=== PATIENT | male | born 1985 | race Two or more races ===

== ENCOUNTER 2021-04-30 13:57 | Emergency (ER) | payer MEDICAID, SELFPAY ==
[2021-04-30 15:48] VITALS: BP 136/67; PULSE 68; RESP 16; TEMP 37.2; O2SAT 99; BMI 36.4
--- NOTE | 2021-04-30 16:08 | ED.BACK ---
HPI - Back Pain/Injury General Chief Complaint: Back Pain/Injury Stated Complaint: sciatica Time Seen by Provider: 04/30/21 16:08 Source: patient Mode of arrival: ambulatory Limitations: no limitations History of Present Illness HPI Narrative: patient with 7-8 weeks of sciatica, Patient has not had sciatica like this. Patient has received epidural for herniated disk. Patient with prior MRI for radiculopathy. patient states that his foot is numb MD elicited complaint: back pain Pertinent past history: prior back pain Onset (ago): week(s) Timing: constant Severity: moderate Location: lumbar spine Associated symptoms: weakness Related Data Previous Rx's Medication Instructions Recorded cyclobenzaprine 10 mg tablet 10 mg PO TID #10 tab 04/30/21 gabapentin 100 mg capsule 100 mg PO TID #20 cap 04/30/21 naproxen 500 mg tablet (Naprosyn) 500 mg PO BID #20 tab 04/30/21 Allergies Allergy/AdvReac Type Severity Reaction Status Date / Time No Known Allergies Allergy Verified 04/30/21 15:47 Review of Systems Constitutional: Constitutional: Reports no additional constitutional complaints Eyes: Eyes: Reports no additional eye complaints ENT: Denies dizziness Cardiovascular: Cardiovascular: Reports no additional cardiovascular complaints Respiratory: Respiratory: Reports as per HPI Gastrointestinal: Gastrointestinal: Reports no additional gastrointestinal complaints Musculoskeletal: Musculoskeletal: Reports no additional musculoskeletal complaints Integumentary/Breasts: Skin/Breast: Denies rash Neurologic: Reports system reviewed and no additional complaints, except as documented, Denies dizziness and Denies Sensory deficit (Neuro) Psychiatric: Psychiatric: Denies anxiety [facility] Social History Social History Advance Directives: No Advance Directives Information Provided: No Physical Exam Vital Signs: Vital Signs: Last Vital Signs Temp 98.9 F 04/30/21 15:48 Pulse 68 04/30/21 15:48 Resp 16 04/30/21 15:48 BP 136/67 04/30/21 15:48 Pulse Ox 99 04/30/21 15:48 Body Mass Index 36.4 Const: General: healthy appearing Nutritional Appearance: average body habitus Orientation/consciousness: oriented to person and patient oriented x3 Limitations: no limitations HENMT: Head: Yes normal to inspection Ears: external ears normal General nose exam: Normal external nose present Mouth: Normal oral and palatal mucosa present and oropharynx normal Throat: Yes posterior oropharynx normal Eyes: General: appearance normal, both eyes and all related structures Neck: Other: supple Neck: Yes normal visual inspection Chest: Chest palpation & inspection: normal inspection of the chest Resp: Auscultation: clear to auscultation bilaterally Cardio: Jugular venous distension: no JVD Rate: regular rate Rhythm: regular rhythm Heart sounds: S1 normal heart sound present and S2 normal heart sound present GI: Inspection: Yes normal to inspection Palpation (GI): Soft to palpation, nontender and No hepatosplenomegaly present Auscultation: normal bowel sounds Back/Spine/Pelvis: Other: left sciatica pain, no foot drop, no loss of strength Skin: General skin exam: no rashes or lesions noted Neuro: General: oriented to person and patient oriented x3 Cranial nerves: Yes CN's II-XII intact bilaterally Motor exam (neuro): 5/5 motor strength present throughout Sensory Exam: No Sensory deficit (Neuro) Extrem: General: Yes normal to inspection Psych: Appearance: grossly normal Course Reevaluation(s) Reevaluation #1: patient with classic sciatica, no neurologic loss, will start NSAIDs, flexeril, gabapentin Time: 16:17 Discharge Plan Discharge Clinical Impression: Lumbar radiculopathy Sciatica Qualifiers: Laterality: left Qualified Code(s): M54.32 - Sciatica, left side Patient Disposition: Home, Self-Care Instructions: Sciatica (ED), Acute Low Back Pain (ED), Lumbar Radiculopathy (ED) Prescriptions: New cyclobenzaprine 10 mg tablet 10 mg PO TID Qty: 10 RF: 0 naproxen [Naprosyn] 500 mg tablet 500 mg PO BID Qty: 20 RF: 0 gabapentin 100 mg capsule 100 mg PO TID Qty: 20 RF: 0
--- NOTE | 2021-04-30 16:29 | PC.NURSE ---
PT AWAKE, ALERT AND ORIENTED X 3. SKIN WARM AND DRY. RESP UNLABORED. DENIES N/V. NEUROS INTACT. SANTOS FREELY. EVALUATED BY DR LOPEZ. PLAN IS FOR DC HOME WITH SCRIPTS. PT AGREEABLE TO PLAN
== END 2021-04-30 16:32 | disposition home or self-care (01) ==
PROVIDERS: Emergency Provider Emergency Medicine
DX: M54.16 Radiculopathy, lumbar region (principal)
CPT/HCPCS: 99283

== ENCOUNTER 2021-05-14 15:58 | Emergency (ER) | payer OTHER, SELFPAY ==
[2021-05-14 16:49] VITALS: BP 153/100; PULSE 88; RESP 18; TEMP 35.9; O2SAT 98; BMI 33.4
--- NOTE | 2021-05-14 16:52 | ED_ITS ---
HPI - Back Pain/Injury General Chief Complaint: Back Pain/Injury Stated Complaint: back and leg pain Time Seen by Provider: 05/14/21 16:51 Source: patient Mode of arrival: ambulatory History of Present Illness HPI Narrative: 35-year-old male with a past medical history of spinal stenosis presenting to the ED complaining of acute on chronic low back pain radiating down left lower extremity with associated left lower extremity numbness x9 weeks. Admits was seen and treated in the ED for similar symptoms recently, been taking prescribed medications with little relief however ran out of medications. Denies known injury/trauma or fall, weakness, urinary incontinence/retention, fever, chills MD elicited complaint: back pain Related Data Previous Rx's Medication Instructions Recorded cyclobenzaprine 10 mg tablet 10 mg PO TID #10 tab 04/30/21 gabapentin 100 mg capsule 100 mg PO TID #20 cap 04/30/21 naproxen 500 mg tablet (Naprosyn) 500 mg PO BID #20 tab 04/30/21 cyclobenzaprine 5 mg tablet 5 mg PO Q8H PRN 5 Days #14 tab 05/14/21 gabapentin 100 mg capsule 100 mg PO TID #20 cap 05/14/21 lidocaine 5 % topical patch 1 patch TOPICAL DAILY PRN #30 ea 05/14/21 (Lidoderm) MDD remove after 12 hours naproxen 500 mg tablet 500 mg PO BID PRN 10 Days #20 tab 05/14/21 prednisone 20 mg tablet 40 mg PO DAILY 5 Days #10 tab 05/14/21 tramadol 50 mg tablet 50 mg PO Q8H PRN 3 Days #9 tab 05/14/21 Allergies Allergy/AdvReac Type Severity Reaction Status Date / Time No Known Allergies Allergy Verified 04/30/21 15:47 Review of Systems Review of Systems: Constitutional: No Fever, No Chills ENT/Mouth: No Ear Pain, No Nasal Congestion, No sore throat, No Rhinorrhea Cardiovascular: No Chest Pain, No SOB Respiratory: No Cough, No Wheezing Gastrointestinal: No Nausea, No Vomiting, No Abdominal pain Genitourinary: No Dysuria, No Urinary Frequency, No Hematuria, No Urinary Incontinence/retention, No Urgency, No Flank Pain Musculoskeletal: + joint pain, No Myalgias, No Joint Swelling Skin: No Skin Lesions, No rash Neuro: No Weakness, + Numbness, + Paresthesias Yes all other systems are reviewed and are negative Neurologic: Denies Sensory deficit (Neuro) [facility] Past Medical History Attestation statement: The following information was validated with the patient. Social History Social History Advance Directives: No Advance Directives Information Provided: No Physical Exam Vital Signs: Vital Signs: Last Vital Signs Temp 96.6 F L 05/14/21 16:49 Pulse 88 05/14/21 16:49 Resp 18 05/14/21 16:49 BP 153/100 H 05/14/21 16:49 Pulse Ox 98 05/14/21 16:49 Body Mass Index 33.4 Const: General: cooperative, healthy appearing, no acute distress, well developed, alert and awake Orientation/consciousness: patient oriented x3 Limitations: no limitations HENMT: Head: Yes normal to inspection Ears: hearing grossly normal bilaterally General nose exam: Normal external nose present Face and sinus: Yes normal facial exam Eyes: General: appearance normal, both eyes and all related structures EOM: EOMs intact bilaterally Neck: Other: No midline cervical spinous tenderness Neck: Yes normal visual inspection Resp: Effort & Inspection: normal respiratory effort and no respiratory distress Cardio: Rate: regular rate Peripheral pulses: dorsalis pedis present GI: Inspection: Yes normal to inspection Palpation (GI): Soft to palpation and nontender : General: Yes no CVA tenderness Back/Spine/Pelvis: Other: No midline thoracic/lumbar spinous tenderness. + bilateral paraspinal tenderness Back: no CVA tenderness Skin: Rashes: no rashes Wounds: no wounds Neuro: Other: Ambulating with steady gait. SILT. No saddle anesthesia. Strength intact throughout General: patient oriented x3, gait normal, tone normal and moves all extremities Gait exam (Neuro): Normal gait present Motor exam (neuro): 5/5 motor strength present throughout Sensory Exam: No Sensory deficit (Neuro) Extrem: General: Yes normal to inspection Course Course Course Narrative: The is RME in triage, full H&P will be left to ED provider. 35yo M with pmhx stenosis, s/p epidurals for pain presenting to ED c/o acute on chronic back pain unresolved with recent rx Flexeril, Naproxen and Gabapentin s/p being seen in our ED for similar sx. Reports pain raidtes down RLE with assoc numbness. Denies incontinence, retention, trauma/injury, weakness. Ran out of meds [place] [facility] [place] - [place] Pain/Injury MDM Narrative Medical decision making narrative: 35-year-old male with a past medical history of spinal stenosis presenting to the ED complaining of acute on chronic low back pain radiating down left lower extremity with associated left lower extremity numbness x9 weeks. On exam initially hypertensive, resolved intervention, NAD, nontoxic, no midline spinous tenderness throughout, no red flag symptoms, no saddle anesthesia. Likely sciatica. Low concern for cauda equina/cord compression Patient reports mild symptomatic improvement with previously prescribed medications, will re-prescribe medications and additionally give tramadol and prednisone. Discussed with patient he needs to establish care with a PCP, likely see neuro surgery and needs an MRI due to length of symptoms/patient's history, he verbalized understanding feel safe for discharge home Differential Diagnosis Differential diagnosis: Likely lumbar radiculopathy Medical Records Attestation: I reviewed the patient's medical records. Lab Data Attestation: I reviewed the patient's lab results. Discharge Plan Discharge Clinical Impression: Lumbar radiculopathy Patient Disposition: Home, Self-Care Instructions: Acute Low Back Pain (ED) Additional Instructions: Your pain is likely musculoskeletal, you need an MRI in the near future. Please follow-up with your primary care doctor, and your surgery as needed Flexeril is a muscle relaxer, take at night as it makes you drowsy, do not drive, drink alcohol, or operate machinery while taking it Naproxen as an anti-inflammatory / pain medication, take with food Lidoderm patches are numbing patches, apply to painful area Prednisone as a steroid, which will help with inflammation/pain Gabapentin is for nerve pain Tramadol as an opiate pain medication, take only when pain is severe for the next 3 days In addition take Tylenol at home If symptoms persist or worsen, pain becomes unbearable, you developed urinary retention or incontinence, or weakness return to the ED Prescriptions: New prednisone 20 mg tablet 40 mg PO DAILY 5 Days Qty: 10 RF: 0 tramadol 50 mg tablet 50 mg PO Q8H PRN (Reason: pain, severe) 3 Days Qty: 9 RF: 0 lidocaine [Lidoderm] 5 % adhesive patch,medicated 1 patch topical DAILY MDD remove after 12 hours PRN (Reason: pain) Qty: 30 RF: 0 naproxen 500 mg tablet 500 mg PO BID PRN (Reason: pain) 10 Days Qty: 20 RF: 0 cyclobenzaprine 5 mg tablet 5 mg PO Q8H PRN (Reason: pain (scale score 7-10)) 5 Days Qty: 14 RF: 0 gabapentin 100 mg capsule 100 mg PO TID Qty: 20 RF: 0 No Action cyclobenzaprine 10 mg tablet 10 mg PO TID Qty: 10 RF: 0 naproxen [Naprosyn] 500 mg tablet 500 mg PO BID Qty: 20 RF: 0 gabapentin 100 mg capsule 100 mg PO TID Qty: 20 RF: 0 Referrals: Zheng Hilton FNP-REMA [Nurse Practitioner] - 2 days Dennise Zamarripa MD [Physician] - 5 days Interventions: ED Discharge Assessment Last Done: 05/14/21 18:44 Discharge Date/Time: 05/14/21 18:47
[2021-05-14] MEDS: Ketorolac Tromethamine 15 MG/ML VIAL 30 MG IM (17:55)
[2021-05-14] MEDS: Cyclobenzaprine HCl 10 MG TABLET PO (17:55)
[2021-05-14] MEDS: oxyCODONE HCl Immed Release 5 MG TABLET PO (17:55)
== END 2021-05-14 18:47 | disposition home or self-care (01) ==
PROVIDERS: Emergency Provider Emergency Medicine
DX: M54.16 Radiculopathy, lumbar region (principal)
CPT/HCPCS: 96372; 99284; J1885

== ENCOUNTER → 2021-05-29 08:51 | Outpatient (BNVA) | payer OTHER, SELFPAY | PROVIDERS: Visit Provider Anesthesiology | DX: M51.36 Other intervertebral disc degeneration, lumbar region (principal); M54.16 Radiculopathy, lumbar region | CPT/HCPCS: 99202 ==

== ENCOUNTER → 2021-06-12 08:42 | Outpatient (BNVA) | payer OTHER, SELFPAY | PROVIDERS: Visit Provider Anesthesiology ==

== ENCOUNTER 2021-07-15 06:08 | Outpatient (REF) | payer OTHER, SELFPAY ==
--- NOTE | ~2021-07-15 | FL_ITS ---
EXAMINATION: XR FLUOROSCOPY WITH IMAGES CLINICAL INFORMATION: M54.16 - Radiculopathy, lumbar region COMPARISON: None. TECHNIQUE: Fluoroscopy performed by Dr. Sonny Livingston. Fluoroscopy time: 0.6 minutes DAP: 12.5 Gycm2 Images: 3 FINDINGS: There are spinal needles overlying the outer left L4 and L5 neural foramen. There is contrast seen in the respective nerve sheaths. Transforaminal epidural extension is also present. No visible vascular communication. FL/FL guidance in treatment room IMPRESSION: Fluoroscopy for pain management procedures.
== END 2021-07-15 06:09 | disposition home or self-care (01) ==
LOC: HO.RADIR 06:08
PROVIDERS: Visit Provider Anesthesiology
DX: M51.36 Other intervertebral disc degeneration, lumbar region (principal); M54.16 Radiculopathy, lumbar region
CPT/HCPCS: 64483; 64484; J3300; Q9967